=== PATIENT | female | born 1960 | race Caucasian/White ===

== ENCOUNTER 2022-04-22 16:35 | Observation (INO) ==
[2022-04-23] MEDS ORDERED: methylPREDNISolone SOD SUC 125 MG/2 ML VIAL IV STA (00:01)
[2022-04-23] MEDS ORDERED: GLUCAGON 1 MG VIAL IM PRN (01:44)
[2022-04-23] MEDS ORDERED: ONDANSETRON 4 MG/2 ML VIAL IV PRN (01:46)
[2022-04-23] MEDS ORDERED: ALBUTEROL 1.25 MG/3 ML NEB RESP TX PRN (01:53)
[2022-04-23] MEDS ORDERED: DEXTROSE 10% 250 ML BAG IV PRN (02:00)
[2022-04-23] MEDS: SODIUM CHLORIDE 0.9% 1,000 ML IV SCH ×2 (03:40→23:18)
[2022-04-23 05:40] LABS: Basophils % 0.4 % (0.0-0.8); Eosinophils # 0.1 10*3/uL (0.0-0.87); Eosinophils % 1.9 % (0.00-10.9); Hematocrit 46.8 VOL% (35.7-47.0); Hemoglobin 14.8 GM/DL (12.0-16.0); Immature Granulocytes % 0.5 %; Immature Granulocytes Absolute 0.04 #; Lymphocytes # 0.9 10*3/uL (1.4-4.0); Lymphocytes % 11.3 % (21.3-54.2); Mean Corpuscular HGB Conc 31.6 GM/DL (32-36); Mean Corpuscular Volume 100.4 FL (87-102); Mean Platelet Volume 11.3 FL (9.6-12.0); Monocytes # 0.2 10*3/uL (0.11-0.8); Monocytes % 2.1 % (1.7-12.7); Neutrophils % 83.8 % (38.7-73.9); Platelet Count 174 T/CUMM (130-400); Red Blood Count 4.66 MC/CUMM (3.8-5.5); Red Cell Distribution Width 13.8 % (9.3-17.3); White Blood Count 7.5 T/CUMM (4-12)
[2022-04-23 06:05] LABS: Bilirubin,Total 0.4 MG/DL (0.20-1.00); Calcium 9.2 MG/DL (8.5-10.1); Osmolality,Calculated 279.7 MOS/KG (273-304); Potassium 4.3 MMOL/L (3.5-5.1); Total Protein 7.4 G/DL (6.4-8.2)
[2022-04-23] MEDS: INSULIN LISPRO 100 UNIT/ML SUBCUT SCH ×4 (08:02→20:35)
[2022-04-23] MEDS: ENOXAPARIN 40 MG/0.4 ML SYRINGE SUBCUT SCH (09:04)
[2022-04-23] MEDS: predniSONE 20 MG TABLET PO SCH (09:05)
[2022-04-23] MEDS: MONTELUKAST 10 MG TABLET PO SCH (09:05)
[2022-04-23] MEDS: PANTOPRAZOLE 40 MG TABLET PO SCH (09:05)
[2022-04-23] MEDS: CLOPIDOGREL 75 MG TABLET PO SCH (14:46)
[2022-04-24] MEDS: INSULIN LISPRO 100 UNIT/ML SUBCUT SCH (08:14)
[2022-04-24] MEDS: predniSONE 20 MG TABLET PO SCH (08:41)
[2022-04-24] MEDS: ENOXAPARIN 40 MG/0.4 ML SYRINGE SUBCUT SCH (08:41)
[2022-04-24] MEDS: CLOPIDOGREL 75 MG TABLET PO SCH (08:41)
[2022-04-24] MEDS: PANTOPRAZOLE 40 MG TABLET PO SCH (08:42)
[2022-04-24] MEDS: MONTELUKAST 10 MG TABLET PO SCH (08:42)
[2022-04-24 12:19] VITALS: BP 128/59
== END 2022-04-24 13:00 | disposition home health service (06) ==
LOC: N.EDINP 16:35 → N.ED 16:35 → N.EDINP 04-23 03:05 → N.2W 04-23 04:26 → N.3E 04-23 17:34
PROVIDERS: ADMIT Emergency Medicine; ATTEND Emergency Medicine